=== PATIENT | female | born 1970 | race Caucasian/White ===

== ENCOUNTER 2024-05-13 14:44 | Emergency (ER) | payer OTHER ==
[~2024-05-13] VITALS: Ht 152.4 cm; Wt 55.0 kg
[2024-05-13 14:50] VITALS: O2SAT 97
[2024-05-13 15:35] VITALS: BP 156/72; PULSE 55; RESP 18; TEMP 98
[2024-05-13] MEDS: ACETAMINOPHEN 325MG TABLET PO ONE (15:35)
[2024-05-13] MEDS: IBUPROFEN 400MG TABLET PO ONE (15:35)
[2024-05-13] MEDS ORDERED: NAPR500T7 MT (15:58)
== END 2024-05-13 16:45 | disposition home or self-care (01) ==
LOC: ER 14:44
DX: S99.912A Unspecified injury of left ankle, initial encounter (principal); X58.XXXA Exposure to other specified factors, initial encounter; Y93.89 Activity, other specified; Y92.89 Other specified places as the place of occurrence of the external cause; Y99.8 Other external cause status
CPT/HCPCS: 73600; 73610; 99284; Z7610